=== PATIENT | female | born 1950 | race Caucasian/White ===

== ENCOUNTER 2019-05-31 06:50 | Day surgery (SDC) | payer MEDICARE, BC ==
[2019-05-30 11:01] LABS: BASOPHILS 0.2 % (0-2); EOSINOPHILS 2.6 % (0-7); HEMATOCRIT 40.4 % (36.0-48.0); HEMOGLOBIN 13.5 g/dL (12-16); IMMATURE GRANULOCYTES 0.2 % (0-5); LYMPHOCYTES 18.3 % (15-50); MCH 31.6 pg (26.0-34.0); MCHC 33.4 g/dL (31.0-37.0); MCV 94.6 fL (80.0-100.0); MEAN PLATELET VOLUME 9.6 fL (7.4-10.4); MONOCYTES 5.2 % (2-11); NEUTROPHILS 73.5 % (40-80); PLATELET COUNT 176 10x3/uL (130-400); RBC 4.27 10x6/uL (4.00-5.40); RDW 13.2 % (11.5-14.5); WBC 4.6 10x3/uL (4.8-10.8)
[2019-05-30 11:05] LABS: ANION GAP 12.1 mmol/L (8-16); CALCIUM 9.2 mg/dL (8.5-10.1); CARBON DIOXIDE 28.3 mmol/L (21.0-32.0); CREATININE - SERUM 1.1 mg/dL (0.6-1.3); POTASSIUM - SERUM 4.4 mmol/L (3.5-5.1)
[2019-05-30 11:14] LABS: APTT 25.6 SECONDS (22.8-39.4); INR 0.97 (0.85-1.17); PROTIME 12.4 SECONDS (11.6-15.0)
[~2019-05-31] VITALS: Ht 170.2 cm; Wt 110.9 kg
[~2019-05-31 06:50] MED LIST: ANASTROZOLE1 MG PO; CELEXA10 MG PO; CLARITIN 10 MG10 MG PO; COZAAR25 MG PO; DESERYL100 MG PO; LIPITOR20 MG PO; LODINE400 MG PO; MOBIC7.5 MG PO; REQUIP1 MG PO; TOPROL XL50 MG PO; VITAMIN B-121000 MCG PO; VITAMIN D2000 UNIT PO; ZOFRAN4 MG PO
[2019-05-31 07:07] VITALS: BP 130/73; BMI 38.3
[2019-05-31] MEDS ORDERED: HYDROCODON-ACE1 EA10 PO (09:57)
[2019-05-31 14:02] VITALS: BP 130/73; Ht 170.2 cm; Wt 110.9 kg
--- NOTE | 2019-05-31 19:25 | NUR ---
PT SITTING UP IN BED RESTING WITHOUT DISTRESS, AOX4. IV RIGHT HAND SL. INCISION TO UMBILICUS DRESSING CDI. STATES PAIN 4/10 AT THIS TIME IN ABD. PT HAS SLIGHT COUGH, SPLINTING ABD WHEN COUGHING. PT FELT LIKE SHE WAS GETTING CONGESTED, GAVE PT INCENTIVE SPIROMETER AND PROVIDED EDUCATION. DENIES OTHER NEEDS AT THIS TIME. CL IN REACH, WILL CTM
[2019-05-31 19:54] VITALS: BP 139/73
--- NOTE | 2019-05-31 20:20 | NUR ---
PT STATES PAIN 03/05, GAVE NORCO ORDERED. DENIES NEEDS, CL IN REACH. WILL CTM
[2019-06-01] VITALS: BP 137/87
[2019-06-01 04:55] VITALS: BP 130/75
--- NOTE | 2019-06-01 07:39 | NUR ---
PT RESTING IN BED. BROUGHT PT SOME COFFEE. NO S/S OF ACUTE DISTRESS. CL IN PLACE.
[2019-06-01 08:04] VITALS: BP 132/70
--- NOTE | 2019-06-01 09:38 | NUR ---
DC INSTRUCTIONS AND EDUCATION DONE. ALL PAPERWORK SIGNED. DC IV WITH TIP INTACT. NO S/S OF ACUTE DISTRESS. CL IN PLACE.
--- NOTE | 2019-06-01 11:56 | NUR ---
1130 IMPORT COORDINATOR ASSISTED PT OFF FLOOR VIA WC. NO S/S OF ACUTE DISTRESS. BELONGINGS IN HAND.
--- NOTE | 2019-06-12 10:07 | OP ---
PATIENT NAME: DIONISIO WADE MEDICAL RECORD: [id number] :54 LOCATION:[facility] ADMISSION DATE: SURGEON: VICENTE DALY MD DATE OF OPERATION: 05/31/2019 PREOPERATIVE DIAGNOSES: 1. Recurrent ventral incisional hernia. 2. Hypertension. 3. Morbid obesity with a BMI of 38. POSTOPERATIVE DIAGNOSES: 1. Recurrent ventral incisional hernia. 2. Hypertension. 3. Morbid obesity with a BMI of 38. PROCEDURE: Ventral hernia repair with 6.4 cm Ventralight mesh. SURGEON: Vicente Daly MD REPORT OF PROCEDURE: The patient's abdomen was prepped and draped in sterile fashion. A semicircular incision was made on the inferior aspect of the umbilicus. Electrocautery was used to dissect through the subcutaneous tissues. We encountered a large hernia sac, which was fat containing. We were able to get around this hernia sac and eventually open this up revealing omentum. The omentum was eventually pushed back down into the abdominal cavity through the fascial opening. The fascial edges were cleared off and a hernia sac was removed. We then freed up the fascia above and below and was able to measure out the hernia defect, which was little over 3 cm in greatest diameter. A 6.4 cm Ventralight mesh was inserted in an underlay fashion and sutured down on all 4 sides using interrupted 0 Prolenes. We then closed the fascia transversely overlying the mesh using a running 0 Vicryl. The wound was irrigated out with normal saline and care was taken to assure there was no sign of any bleeding. The umbilicus and the subcutaneous tissues were reapproximated with interrupted 3-0 Vicryl and the skin was closed with running subcutaneous 5-0 Monocryl. A 10 mL of 0.25% Marcaine with epinephrine was infused into the surrounding tissues and the wound was dressed appropriately. COMPLICATIONS: None. CONDITION: Stable. ANESTHESIA: General endotracheal and local. BLOOD LOSS: Minimal. TRANSINT:[id number] Voice Confirmation ID: [id number] DOCUMENT ID: [id number] OPERATIVE REPORT [id number] DIONISIO WADE VICENTE DALY MD at 1007 CC: QUIANA PATEL [id number] DICTATION DATE: 05/31/19 1002 FINANCIAL RISK MANAGER: 05/31/19 1200 DEP SDC 06/01/19 [facility] [address] [place] [address]
== END 2019-06-01 11:30 | disposition home or self-care (01) ==
LOC: D.OPS 06:50 → D.MS 06:50 → D.OPS 07:15 → D.MS 13:00 → D.OPS 06-01 11:30
PROVIDERS: Anesthesiology; ATTEND Surgery
DX: K43.2 Incisional hernia without obstruction or gangrene (principal); I10 Essential (primary) hypertension; E66.01 Morbid (severe) obesity due to excess calories; Z68.38 Body mass index [BMI] 38.0-38.9, adult; Z01.812 Encounter for preprocedural laboratory examination